=== PATIENT | female | born 1965 | race Hispanic/Latino ===

== ENCOUNTER 2017-05-04 09:35 | Emergency (ER) | payer OTHER ==
[2017-05-04 09:52] VITALS: BP 172/95; PULSE 72; RESP 18; TEMP 97; O2SAT 98
[2017-05-04] MEDS ORDERED: Tdap Vaccine 0.5 ml Vial (10-64 yrs) IM ONE ×2 (10:09→10:30)
[2017-05-04] MEDS ORDERED: Oxycodone/Acetaminophen 5/325 mg Tab PO STA (10:23)
[2017-05-04] MEDS ORDERED: Oxycodone/Acetaminophen 5/325 mg Tab ONE ×2 (10:36→10:43)
--- NOTE | 2017-05-04 11:07 | RAD ---
PROCEDURE: Left Knee Radiographs. HISTORY: Pain. COMPARISON: None. FINDINGS: BONES: No acute fracture. JOINTS: Unremarkable. JOINT EFFUSION: None. OTHER FINDINGS: Small quadriceps tendon enthesophyte. IMPRESSION: No demonstrated fracture or dislocation.
--- NOTE | 2017-05-04 12:49 | CT ---
PROCEDURE: CT HEAD WITHOUT CONTRAST. HISTORY: Head injury COMPARISON: None available. TECHNIQUE: Axial computed tomography images were obtained through the head/brain without intravenous contrast. Radiation dose: Total exam DLP = 868.4 mGy-cm. This CT exam was performed using one or more of the following dose reduction techniques: Automated exposure control, adjustment of the mA and/or kV according to patient size, and/or use of iterative reconstruction technique. FINDINGS: HEMORRHAGE: No intracranial hemorrhage. BRAIN: No mass effect or edema. No atrophy or chronic microvascular ischemic changes. VENTRICLES: Unremarkable. No hydrocephalus. CALVARIUM: Unremarkable. PARANASAL SINUSES: Left orbital floor fracture with herniation of inferior bulbar fat. Small volume layering hemorrhage in the left maxillary sinus. MASTOID AIR CELLS: Unremarkable as visualized. No inflammatory changes. OTHER FINDINGS: Left infraorbital and lateral orbital subcutaneous emphysema. IMPRESSION: No acute intracranial hemorrhage. Left orbital floor fracture with herniation of the inferior bulbar fat. Small volume hemorrhage in the left maxillary sinus.
--- NOTE | 2017-05-04 12:54 | CT ---
PROCEDURE: CT MAXILLOFACIAL BONES WITHOUT CONTRAST HISTORY: L facial injury COMPARISON: None. TECHNIQUE: Contiguous axial CT images of the maxillofacial bones were obtained. Coronal and sagittal reformats were generated. Radiation dose: Total exam DLP = 749.8 mGy-cm. This CT exam was performed using one or more of the following dose reduction techniques: Automated exposure control, adjustment of the mA and/or kV according to patient size, and/or use of iterative reconstruction technique. FINDINGS: NASAL BONES: Unremarkable. ORBITS: Left orbital floor fracture with herniation of inferior global fat. PARANASAL SINUSES/ MASTOIDS: Small volume hemorrhage layering in the left maxillary sinus. MAXILLA: Unremarkable. MANDIBLE/ TEMPOROMANDIBULAR JOINTS: Unremarkable. SKULL BASE: Unremarkable. TEMPORAL BONES: Middle ears and mastoid grossly unremarkable. OTHER FINDINGS: Left infraorbital and lateral orbital subcutaneous emphysema. IMPRESSION: Left orbital floor fracture with herniation of inferior global fat and layering hemorrhage in the left maxillary sinus.
[2017-05-04] MEDS ORDERED: Lidocaine 1% w Epi 1:100,000 Inj ONE (13:06)
[2017-05-04] MEDS ORDERED: Povidone Iodine Topical 10% Sol ONE (13:07)
[2017-05-04] MEDS ORDERED: Amoxicillin-Clav 875-125 mg Tab PO STA (14:04)
--- NOTE | 2017-05-04 14:14 | ED PDOC ---
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 Denies LOC, nausea, vomiting, visual changes, neck pain. Past Medical History Reviewed: Nursing Documentation, Vital Signs Vital Signs: Last Vital Signs Temp 97 F L 05/04/17 09:46 Pulse 72 05/04/17 09:46 Resp 18 05/04/17 09:46 BP 172/95 H 05/04/17 09:46 Pulse Ox 98 05/04/17 09:46 - Medical History PMH: No Chronic Diseases, HTN (not on meds) - Family History Family History: States: Unknown Family Hx - Social History Current smoker - smoking cessation education provided: No Alcohol: None - Immunization History Hx Tetanus Toxoid Vaccination: No Hx Influenza Vaccination: No Hx Pneumococcal Vaccination: No - Home Medications Home Medications: Ambulatory Orders Medication Instructions Recorded Acetaminophen with Codeine 1 tab PO Q6H PRN #10 tab 05/04/17 [Tylenol with Codeine No. 3 300 mg-30 mg] Amoxicillin/Clavulanate [Augmentin 1 tab PO BID #19 tab 05/04/17 875 MG-125 MG] - Allergies Allergies/Adverse Reactions: Allergies Allergy/AdvReac Type Severity Reaction Status Date / Time No Known Allergies Allergy Verified 05/04/17 09:46 Review of Systems ROS Statement: Except As Marked, All Systems Reviewed And Found Negative Musculoskeletal: Positive for: Other (Facial pain) Neurological: Negative for: Weakness, Numbness, Incoordination, Change in Speech , Confusion, Seizures, Altered Mental Status, Headache, Dizziness Physical Exam - Reviewed Nursing Documentation Reviewed: Yes Vital Signs Reviewed: Yes - Physical Exam Appears: Positive for: Well, No Acute Distress Head Exam: Positive for: ATRAUMATIC, NORMAL INSPECTION Skin: Positive for: Normal Color, Warm, Dry Eye Exam: Positive for: Normal appearance, EOMI, PERRL, Periorbital swelling, Periorbital tenderness, Other (Lacerations X 2 L orbital area, + periorbital ecchymosis, no crepitus, no active bleeding) Neck: Positive for: Normal, Painless ROM, Supple Cardiovascular/Chest: Positive for: Regular Rate, Rhythm Respiratory: Positive for: Normal Breath Sounds Gastrointestinal/Abdominal: Positive for: Normal Exam Back: Positive for: Normal Inspection. Negative for: L CVA Tenderness, R CVA Tenderness Extremity: Positive for: Normal ROM, Other (Abrasion L patellar area, FROM, no deformity, no laceration) Neurologic/Psych: Positive for: Alert, trust mail clerk II-XII, Oriented. Negative for: Motor/Sensory Deficits - ECG O2 Sat by Pulse Oximetry: 98 Medical Decision Making Medical Decision Makin yo with facial lacerations and periorbital ecchymosis s/p fall. - CT head - CT facial bones - Adacel - XR L knee - Percocet Patient Name / ID : SUSIE SOTO / [id number] Exam Date : 05/04/2017 11:56:49 ( Approved ) Study Comment : Sex / Age : F / 52Y Creator : Marvin Bacon MD Dictator : Marvin Bacon MD Winder Operator : Bender Machine : Marvin Bacon MD Approver2 : Report Date : 05/04/2017 12:47:57 My Comment : PROCEDURE: CT HEAD WITHOUT CONTRAST. HISTORY: Head injury COMPARISON: None available. TECHNIQUE: Axial computed tomography images were obtained through the head/brain without intravenous contrast. Radiation dose: Total exam DLP = 868.4 mGy-cm. This CT exam was performed using one or more of the following dose reduction techniques: Automated exposure control, adjustment of the mA and/or kV according to patient size, and/or use of iterative reconstruction technique. FINDINGS: HEMORRHAGE: No intracranial hemorrhage. BRAIN: No mass effect or edema. No atrophy or chronic microvascular ischemic changes. VENTRICLES: Unremarkable. No hydrocephalus. CALVARIUM: Unremarkable. PARANASAL SINUSES: Left orbital floor fracture with herniation of inferior bulbar fat. Small volume layering hemorrhage in the left maxillary sinus. MASTOID AIR CELLS: Unremarkable as visualized. No inflammatory changes. OTHER FINDINGS: Left infraorbital and lateral orbital subcutaneous emphysema. IMPRESSION: No acute intracranial hemorrhage. Left orbital floor fracture with herniation of the inferior bulbar fat. Small volume hemorrhage in the left maxillary sinus. Accession No. : [id number] Patient Name / ID : SUSIE SOTO / [id number] Exam Date : 05/04/2017 11:59:54 ( Approved ) Study Comment : Sex / Age : F / 52Y Creator : Marvin Bacon MD Dictator : Marvin Bacon MD Winder Operator : Bender Machine : Marvin Bacon MD Approver2 : Report Date : 05/04/2017 12:53:25 My Comment : PROCEDURE: CT MAXILLOFACIAL BONES WITHOUT CONTRAST HISTORY: L facial injury COMPARISON: None. TECHNIQUE: Contiguous axial CT images of the maxillofacial bones were obtained. Coronal and sagittal reformats were generated. Radiation dose: Total exam DLP = 749.8 mGy-cm. This CT exam was performed using one or more of the following dose reduction techniques: Automated exposure control, adjustment of the mA and/or kV according to patient size, and/or use of iterative reconstruction technique. FINDINGS: NASAL BONES: Unremarkable. ORBITS: Left orbital floor fracture with herniation of inferior global fat. PARANASAL SINUSES/ MASTOIDS: Small volume hemorrhage layering in the left maxillary sinus. MAXILLA: Unremarkable. MANDIBLE/ TEMPOROMANDIBULAR JOINTS: Unremarkable. SKULL BASE: Unremarkable. TEMPORAL BONES: Middle ears and mastoid grossly unremarkable. OTHER FINDINGS: Left infraorbital and lateral orbital subcutaneous emphysema. IMPRESSION: Left orbital floor fracture with herniation of inferior global fat and layering hemorrhage in the left maxillary sinus. Accession No. : [id number] Patient Name / ID : SUSIE SOTO / [id number] Exam Date : 05/04/2017 10:26:29 ( Approved ) Study Comment : Sex / Age : F / 52Y Creator : Marvin Bacon MD Dictator : Marvin Bacon MD Winder Operator : Bender Machine : Marvin Bacon MD Approver2 : Report Date : 05/04/2017 11:06:00 My Comment : PROCEDURE: Left Knee Radiographs. HISTORY: Pain. COMPARISON: None. FINDINGS: BONES: No acute fracture. JOINTS: Unremarkable. JOINT EFFUSION: None. OTHER FINDINGS: Small quadriceps tendon enthesophyte. IMPRESSION: No demonstrated fracture or dislocation. Lacerations repaired by Dr. Escalante, to follow-up in his office. Disposition - Clinical Impression Clinical Impression: Orbital floor fracture, Facial laceration - Disposition Referrals: Zainab Escalante MD [Medical Doctor] - Disposition: Routine/Home Disposition Time: 14:14 Condition: STABLE Prescriptions: Acetaminophen with Codeine [Tylenol with Codeine No. 3 300 mg-30 mg] 1 tab PO Q6H PRN #10 tab PRN Reason: Pain, Severe (8-10) Amoxicillin/Clavulanate [Augmentin 875 MG-125 MG] 1 tab PO BID #19 tab Instructions: Laceration Repair, Skull and Facial Fractures Forms: [employer] (Dutch)
[2017-05-04] MEDS ORDERED: Amoxicillin-Clav 875-125 mg Tab PO ONE (14:24)
--- NOTE | 2017-05-20 01:03 | CON ---
EMERGENCY ROOM CONSULTATION DATE: 05/04/2017 SURGEON: Zainab Escalante MD HISTORY OF PRESENT ILLNESS: This is a 52-year-old healthy female who has only medical history I believe with hypertension who presented to the emergency room [place] the train track. She has multiple lacerations and possible facial fractures, thus the ER staff consulted me, and I came into evaluate and treat the patient. PHYSICAL EXAMINATION: HEENT: The patient had 2 lacerations where her eyeglasses were. There was a 3 cm left upper eyelid laceration and a 3 cm left cheek laceration with irregular skin edges. She has subcutaneous emphysema and paresthesias and a distribution of the infraorbital nerve on the left side. She has some tenderness to the left inferior orbital rim. There was no bony step-off. She had enophthalmos on the left eye, which is pretty significance. She has double vision on upper gaze. The superior orbital bone was nontender. The nasal bones were nontender. Her occlusion was normal and were nontender. Light reflex to the tip of her nose was straight. I was very concerned about orbital floor fracture. DIAGNOSTIC DATA: A CAT scan was ordered. The CAT scan showed a left medial orbital floor blowout fracture 1.5 x 1.5 cm since there was a significant edema and subcutaneous emphysema. I explained to the patient and her , I will irrigate and do complex repair of her two lacerations. We will treat her on antibiotics. I warned her not to blow her nose or sneeze and increase the pressure. I advised her decreasing swelling, I told her to see an regulatory analyst. I told her that she needs to have a orbital floor repaired with a plate within the next two weeks or enophthalmos and ocular problems. She understood this. I also said that there is going to be scarring and my job as a plastic surgeon was to minimize it and she understood this and wished to proceed. I will now dictate a separate operative report. Zainab Escalante MD
--- NOTE | 2017-05-20 01:39 | OP ---
PROCEDURE DATE: 05/04/2017 PREOPERATIVE DIAGNOSES: 1. Left orbital floor blowout fracture. 2. A 3 cm left upper eyelid laceration. 3. Left cheek 3 cm laceration. POSTOPERATIVE DIAGNOSES: 1. Left orbital floor blowout fracture. 2. A 3 cm left upper eyelid laceration. 3. Left cheek 3 cm laceration. PROCEDURE PERFORMED: 1. Close treatment without manipulation of left orbital floor blowout fracture. 2. Debridement of soft tissue at open fracture site. 3. Complex repair of 3 cm left upper eyelid laceration. 4. Complex repair of 3 cm left cheek laceration. SURGEON: Zainab Escalante MD TYPE OF ANESTHESIA: Regional. 1. Left infraorbital nerve block as well as local. INDICATION FOR PROCEDURE: Please refer to my separately dictated ER consultation for history and physical. The patient has preexisting paresthesias under distribution of the left infraorbital nerve. DESCRIPTION OF PROCEDURE: As follows; 1% lidocaine with 1:100,000 epinephrine was used in the left infraorbital nerve block for regional anesthesia as well as local and two lacerations. The wounds are prepped and draped in the usual clean and sterile manner after I thoroughly irrigated and only retained debris was manually removed. I started with the left upper eyelid laceration. I debrided the skin edges with scissor technique. I undermined to take the tension off the wound and then used the 5-0 Monocryl, lined up and approximated orbicularis warren muscle and deep dermis in interrupted fashion. I closed the epidermis with the running 6-0 Prolene suture. I then addressed the left cheek laceration all of which underlying the open fracture site of the orbit, debrided the soft tissue which is irregular and contused, undermined, used 5-0 Monocryl, lined up, and approximated underlying muscle, subcutaneous tissue and deep dermis and then used a 6-0 Prolene running suture for the 3 cm laceration. At this time, I treated her blowout orbital floor fracture in a closed manner without manipulation with antibiotics Augmentin. I told the patient not to blow her nose, not to sneeze, gave her instructions for , had a bed elevation, ice packs, and to see an burner shaft and warned her that she needs to have orbital floor open reduction and internal fixation within 2 weeks permanent complications to eye. She understood this and was discharged home from the emergency room in stable condition. Zainab Escalante MD
== END 2017-05-04 14:31 | disposition home or self-care (01) ==
LOC: H.ER 09:35
DX: S02.32XA Fracture of orbital floor, left side, initial encounter for closed fracture (principal); S06.9X0A Unspecified intracranial injury without loss of consciousness, initial encounter; S01.81XA Laceration without foreign body of other part of head, initial encounter; Z23 Encounter for immunization; W01.0XXA Fall on same level from slipping, tripping and stumbling without subsequent striking against object, initial encounter